=== PATIENT | female | born 1945 | race Caucasian/White ===

== ENCOUNTER 2022-02-04 16:36 | Emergency (ER) | payer MEDICARE ==
[~2022-02-04] VITALS: Ht 160 cm; Wt 74.4 kg
[2022-02-04 16:57] VITALS: BP 208/64
--- NOTE | 2022-02-04 17:02 | NUR ---
PT BIB [facility] C/C HEAD INJURY S/P FALL. PT DENIES LOC. PT GCS 15 HX OF DEMENTIA PERIODS OF CONFUSION. LACERATION NOTED TO LEFT EYEBROW NO ACTIVE BLEEDING NOTED. PENDING CT. NAD. SAFETY MAINTAINED.
--- NOTE | 2022-02-04 17:11 | NUR ---
PATIENT TAKEN TO CT [facility]IA [facility]
--- NOTE | 2022-02-04 18:26 | NUR ---
PTS LEFT EYELID WOUND WAS CLEANED USING 4X4 GAUZE AND SALINE.
--- NOTE | 2022-02-04 19:08 | NUR ---
PTS DAUGHTER HERE FOR DC. PT GCS 15 WITH PERIODS OF CONFUSION. PT VERBALIZES DC INSTRUCTIONS. PENDING RIDE FOR DC HOME.
--- NOTE | 2022-02-04 19:42 | NUR ---
Patient discharged with v/s stable. Written and verbal after care instructions given and explained. Patient verbalized understanding. Wheel Chair Assisted to car TO FAMILY. All questions addressed prior to discharge. Advised to follow up with PMD.
[2022-02-04 19:44] VITALS: BP 141/70
== END 2022-02-04 18:57 | disposition home or self-care (01) ==
LOC: MED 16:36
DX: S01.112A Laceration without foreign body of left eyelid and periocular area, initial encounter (principal); N18.6 End stage renal disease; I10 Essential (primary) hypertension; I50.9 Heart failure, unspecified; F03.90 Unspecified dementia, unspecified severity, without behavioral disturbance, psychotic disturbance, mood disturbance, and anxiety; Z99.2 Dependence on renal dialysis; Z79.899 Other long term (current) drug therapy; W18.30XA Fall on same level, unspecified, initial encounter; Y93.89 Activity, other specified; Y92.89 Other specified places as the place of occurrence of the external cause; Y99.8 Other external cause status
CPT/HCPCS: 70450; 99284